=== PATIENT | female | born 1990 | race Caucasian/White ===

== ENCOUNTER 2017-08-27 01:22 | Inpatient (IN) | payer BC ==
[~2017-08-27] VITALS: Ht 167.6 cm; Wt 85.0 kg
[2017-08-27] VITALS (17 sets, daily range): BP systolic 106–117; BP diastolic 70–75; PULSE 60–75; TEMP 36.6–36.9; O2SAT 98–100; Ht 167.6 cm; Wt 85.0 kg
[2017-08-27] MEDS ORDERED: LACTATED RINGER'S 1000ML 1,000 ML IV SCH ×2 (01:54→12:00)
[2017-08-27] MEDS ORDERED: CEFAZOLIN IV 2,000 MG in SYRINGE 0 ML IV SCH (02:00)
[2017-08-27] MEDS ORDERED: CITRIC ACID/SODIUM CITRATE 15 ML UDC PO ONE (02:00)
[2017-08-27] MEDS ORDERED: PRENTAB26 PO (02:12)
[2017-08-27] MEDS ORDERED: BUDE1SUS8 (02:13)
[2017-08-27] MEDS ORDERED: CHOL1000 PO (02:14)
[2017-08-27] MEDS ORDERED: PROB1TAB16 (02:14)
[2017-08-27] MEDS ORDERED: CLR10 PO (02:14)
[2017-08-27 02:32] LABS: BASO % 0.1 %; BASO ABS # 0.01 K/uL (0-0.2); EOS % 0.9 %; EOS ABS # 0.08 K/uL (0-0.5); HEMATOCRIT 37.2 % (37-47); HEMOGLOBIN 13.1 g/dL (12.0-16.0); IG# 0.09 K/uL (0.00-0.02); LYMPH ABS # 1.67 K/uL (1.2-3.4); MEAN CELL VOLUME 90.1 fL (80-100); MEAN CORPUSCULAR HEMOGLOBIN 31.7 pg (25-34); MEAN CORPUSCULAR HGB CONC 35.2 g/dl (32-36); MEAN PLATELET VOLUME 9.4 fL (7.4-10.4); MONO % 6.8 %; NEUT % 72.2 %; NEUT ABS # 6.32 K/uL (1.4-6.5); PLATELET COUNT 195 K/uL (130-400); RED CELL DISTRIBUTION WIDTH CV 14.4 % (11.5-14.5); RED CELL DISTRIBUTION WIDTH SD 47.3 fL (36.4-46.3); WHITE BLOOD COUNT 8.77 K/uL (4.8-10.8)
[2017-08-27] MEDS ORDERED: FENTANYL CITRATE INJ 50 MCG/1 ML 2 ML VIAL ONE (02:34)
[2017-08-27] MEDS ORDERED: MoRPHine SULFATE PF 1 MG/ML 10 ML AMP/VIAL ONE (02:35)
[2017-08-27] MEDS ORDERED: OXYTOCIN INJ 10 UNITS/ML VIAL ONE ×2 (02:35→03:43)
[2017-08-27] MEDS ORDERED: PHENYLEPHRINE 100MCG/ML 5ML SYR ONE (03:05)
--- NOTE | 2017-08-27 03:22 | HISTORY & PHYSICAL EXAMINATION ---
DATE OF ADMISSION: 08/27/2017 CHIEF COMPLAINT: Spontaneous rupture of membranes and breech presentation. HISTORY OF PRESENT ILLNESS: The patient is a 27-year-old 1, para 0 at 39 weeks and 5 days gestation who was admitted to labor and delivery on the morning of 08/27/2017 with rupture of membranes that occurred at 1:00 a.m. She was scheduled for a primary on 08/29/2017 for a breech presentation. She was seen in the office last week and was found to be in the breech presentation. On arrival to labor and delivery, she was grossly ruptured. She was found to be 1 cm, 50% effaced, and -2 station. A bedside ultrasound was performed noting that the baby was still in the breech presentation. heart tones were category 1. Contractions were irregular. We discussed the risks, benefits, and alternatives of a primary section and informed consent was obtained. PAST MEDICAL HISTORY: Significant for vitamin D deficiency and allergies. PAST SURGICAL HISTORY: She had her wisdom teeth removed in 2006. SOCIAL HISTORY: The patient denies tobacco, alcohol, or drug use. MEDICATIONS: Rhinocort nasal spray daily, vitamin D 1000 units daily, Claritin 10 mg daily, vitamins, probiotic daily. ALLERGIES: The patient has no known drug allergies. LABS: Blood type is A negative, group B strep negative, rubella immune, hepatitis B surface antigen negative, RPR nonreactive and HIV negative. PHYSICAL EXAMINATION: VITAL SIGNS: Blood pressure 114/77, heart rate of 80, respiration rate of 20, temperature 97.7. GENERAL: The patient is awake, alert, and oriented x3. She is in no acute distress. HEART: Regular rate and rhythm. LUNGS: Clear to auscultation bilaterally. ABDOMEN: Gravid uterus, appropriate for gestational age. Bowel sounds present x4. EXTREMITIES: No clubbing, cyanosis, or calf tenderness. VAGINAL EXAM: She is 1 cm, 50% effaced, -2 station and grossly ruptured with clear amniotic fluid noted. heart tones are category 1. ASSESSMENT AND PLAN: A 27-year-old female 1, para 0 at 39 weeks and 5 days gestation, will be admitted to labor and delivery for spontaneous rupture of membranes and breech presentation. Will proceed with a primary section. Risks, benefits, and alternatives were discussed and informed consent was obtained. [facility]ITALRehana
[2017-08-27] MEDS ORDERED: NALOXONE HCL INJ 1 MG in SODIUM CHLORIDE 0.9% 1000ML 1,000 ML IV PRN (03:32)
[2017-08-27] MEDS ORDERED: LACTATED RINGER'S 1000ML 500 ML IV PRN (03:32)
[2017-08-27] MEDS ORDERED: NALOXONE HCL INJ 0.08 MG in SYRINGE 1.8 ML IV PRN (03:32)
[2017-08-27] MEDS ORDERED: SODIUM CHLORIDE 0.9% 1000ML 1,000 ML IV PRN (03:32)
[2017-08-27] MEDS ORDERED: ONDANSETRON INJ 2 MG/ML 2 ML VIAL IV PRN ×2 (03:45→21:00)
[2017-08-27] MEDS ORDERED: NALOXONE HCL 0.4 MG/1 ML VIAL/CARP IV PRN (03:45)
[2017-08-27] MEDS ORDERED: MEPERIDINE HCL 25 MG/ML CARP IV PRN (03:45)
[2017-08-27] MEDS ORDERED: DiphenhydrAMINE HCL 50 MG/ML VIAL IV PRN (03:45)
[2017-08-27] MEDS ORDERED: NALBUPHINE HCL INJ 10 MG/ML AMP IV PRN (03:45)
[2017-08-27] MEDS ORDERED: NO NARCOTICS OR SEDATIVES SCH (03:45)
[2017-08-27] MEDS ORDERED: EpHEDrine SULFATE INJ 50 MG/ML AMP IV PRN (03:45)
[2017-08-27] MEDS ORDERED: MoRPHine SULFATE 4 MG/ML 1 ML CARP\\VIAL IV PRN (03:45)
[2017-08-27] MEDS ORDERED: MoRPHine SULFATE PF 1 MG/ML 10 ML AMP/VIAL EPI PRN (03:45)
--- NOTE | 2017-08-27 04:00 | [facility] Post Operative Brief Note ---
Immediate Operative Summary Operative Date August 27, 2017. Pre-Operative Diagnosis 39.5 WKS GESTATION, BREECH PRESENTATION WITH RUPTURE OF MEMBRANES Post-Operative Diagnosis SAME ABOVE Procedure(s) Performed CAESAREAN SECTION DEL VIABLE FEMALE AT [address] ONEIL Sales Lead Surgeon(s) Kierra Cullen RN Estimated Blood Loss 600ML Findings Consistent with Post-Op Diagnosis Fluids (cc crystalloids) 2200 Specimens PLACENTA-HOLD Drains Michaud To [place] Anesthesia Type Spinal Complication(s) none Disposition Accompanied Pt To Recover: no Disposition: L&D
[2017-08-27] MEDS ORDERED: DIPHTHERIA/TETANUS/PERTUSSIS 0.5 ML SYR/VIAL IM. ONE (04:15)
[2017-08-27] MEDS ORDERED: SENNA 8.6 MG TAB PO PRN (04:15)
[2017-08-27] MEDS ORDERED: LANOLIN OINT EXT PRN (04:15)
[2017-08-27] MEDS ORDERED: BENZOCAINE 20% AER SPR 82.5 GM CAN EXT PRN (04:15)
[2017-08-27] MEDS ORDERED: HYDROCORTISONE ACETATE 25 MG SUPP PR PRN (04:15)
[2017-08-27] MEDS ORDERED: MAGNESIUM HYDROXIDE SUSP 30 ML UDC PO PRN (04:15)
[2017-08-27] MEDS ORDERED: SUPERCREAM 0.870 % 15GM JAR EXT PRN (04:15)
--- NOTE | 2017-08-27 04:34 | Anesthesiology Progress Note ---
Anesthesia Post Op Note Date & Time August 27, 2017 at 04:33 Notes Mental Status: alert / awake / arousable, participated in evaluation Pt Amnestic to Procedure: Yes Nausea / Vomiting: adequately controlled Pain: adequately controlled Airway Patency, RR, SpO2: stable & adequate BP & HR: stable & adequate Hydration State: stable & adequate Neuraxial Anesthesia: was administered, sensory block is resolving Anesthetic Complications: no major complications apparent
--- NOTE | 2017-08-27 05:11 | OPERATIVE REPORT ---
DATE OF OPERATION: 08/27/2017 PREOPERATIVE DIAGNOSES: 1. Intrauterine at 39 weeks and 5 days gestation. 2. Breech presentation. 3. Spontaneous rupture of membranes. POSTOPERATIVE DIAGNOSES: 1. Intrauterine at 39 weeks and 5 days gestation. 2. Breech presentation. 3. Spontaneous rupture of membranes. OPERATIVE PROCEDURE: Primary low transverse section. SURGEON: Elliott Majano DO SENIOR NETWORK ENGINEER: Kierra Cullen RN. ANESTHESIA: Spinal. ESTIMATED BLOOD LOSS: 600 mL. INTRAVENOUS FLUIDS: 2200 mL crystalloids. URINE OUTPUT: 250 mL clear yellow urine. SPECIMENS: Placenta and cord blood. DRAINS: Michaud to gravity. COMPLICATIONS: None. DISPOSITION: To labor and delivery. OPERATIVE FINDINGS: Patient delivered a viable female infant in the dante breech presentation at 3:18 a.m. on 08/27/2017 via primary low transverse section. Nuchal cord x1 was reduced at delivery. Baby weighed 7 pounds 13 ounces with Apgars of 8 at 1 minute and 9 at 5 minutes. Please see fiction writer's notes for further baby assessment. Cord blood was obtained and intact placenta with 3-vessel cord was delivered at 3:19 a.m. Grossly normal uterus and bilateral tubes and ovaries were noted. Both patient and baby tolerated the surgery well and were in recovery with stable vital signs. OPERATIVE PROCEDURE IN DETAIL: The patient was taken to the operating room where spinal anesthesia was administered. The patient was then immediately placed in a dorsal supine position with a left lateral tilt and was prepped and draped in a manner appropriate for the procedure. Once the anesthesia was found to be adequate, a Pfannenstiel skin incision was made 2 fingerbreadths above the pubic symphysis and was carried down through to a layer of the rectus fascia. Fascia was nicked in the midline and extended bilaterally with curved Delgado scissors. The superior aspect of the fascial incision was grasped with Piter clamps, elevated, and the rectus muscles were dissected off with the use of the curved Delgado scissors and electrocautery. Likewise, the inferior aspect of the fascial incision was grasped with Piter clamps, elevated, and rectus muscles were dissected off with the use of curved Delgado scissors. Rectus muscles were in midline. The peritoneum was grasped with hemostats x2 and entered with Metzenbaum scissors. Peritoneal incision was then extended cephalocaudally with gentle traction. An Noah retractor was then placed within the abdomen. The vesicouterine peritoneum was identified and a bladder flap was created with the Metzenbaum scissors and digital traction. The bladder flap was incorporated beneath the Rowe blade. A transverse incision was then made on the uterus and extended bilaterally with digital traction. The baby was found to be in the dante breech presentation and was delivered with breech maneuvers without complications. Nuchal cord x1 was reduced at delivery. Baby was bulb suctioned at delivery. Cord was clamped x2 and cut. Baby was immediately handed to awaiting fiction writer for further evaluation and management. Please see their notes for further baby assessment. Cord blood was then obtained and intact placenta with 3-vessel cord was delivered manually through the incision. The uterus was then exteriorized and wrapped in a moist laparotomy sponge. The uterus was then cleared of any trailing membranes and debris with a laparotomy sponge. The uterine incision was then grasped with ring forceps at 4 quadrants and was then closed with 0 Vicryl suture in a continuous locking fashion. A second layer of 0 Vicryl suture was used in imbricating fashion to ensure hemostasis. The posterior cul-de-sac was then irrigated with warm saline solution. The uterus was then placed back within its normal anatomic position within the abdomen. The anterior cul-de-sac was then irrigated with warm saline solution. The uterine incision was noted to be hemostatic once again. The bladder flap was reapproximated to the lower uterine segment with 3-0 Vicryl suture in continuous running fashion. Excellent hemostasis was noted. All instruments were then removed from the abdomen. The Noah retractor was also removed from the abdomen. The peritoneum was then grasped with Yuridia clamps at 4 quadrants and was then closed with 2-0 Vicryl suture in continuous running fashion. Rectus muscles were reapproximated with 0 Vicryl suture in a [id number] interrupted fashion. Rectus fascia was then closed with 0 Vicryl suture in continuous running fashion. Subcutaneous tissue was reapproximated with 2-0 Vicryl suture in continuous running fashion. Skin was then closed with 4-0 Monocryl in a subcuticular fashion. Excellent hemostasis was noted through all tissue layers. All sponge, instrument, and needle counts found to be correct x2. The patient tolerated the procedure well and was sent to recovery with stable vital signs. I attest to the content of the Intraoperative Record and any orders documented therein. Any exception s are noted below.
[2017-08-27] MEDS: OXYTOCIN INJ 30 UNITS in LACTATED RINGER'S 1000ML 1,000 ML IV SCH ×2 (05:48→13:52)
[2017-08-27] MEDS: KETOROLAC TROMETHAMINE 30 MG/ML VIAL IV. PRN ×2 (07:55→16:39)
[2017-08-27] MEDS ORDERED: LORATADINE 10 MG TAB PO SCH (08:00)
[2017-08-27] MEDS: SIMETHICONE 80 MG CHEW PO SCH ×4 (08:25→19:55)
[2017-08-27] MEDS: DOCUSATE SODIUM 100 MG CAP PO SCH ×2 (08:26→19:55)
[2017-08-27] MEDS: PRENATAL VITAMIN TAB PO SCH (08:26)
[2017-08-27] MEDS: FERROUS SULFATE 325 MG TAB PO SCH (08:27)
[2017-08-27] MEDS ORDERED: NURSING VERBAL MED ORDER ONE (08:30)
[2017-08-27] MEDS: LORATADINE 10 MG TAB PO SCH (19:56)
[2017-08-27] MEDS ORDERED: DC INTRASPINAL MORPHINE ONE (21:00)
[2017-08-27] MEDS ORDERED: OXYCODONE/ACETAMINOPHEN 5-325 TAB PO PRN (21:00)
[2017-08-27] MEDS ORDERED: KETOROLAC TROMETHAMINE 30 MG/ML VIAL IV. PRN (21:00)
[2017-08-27] MEDS ORDERED: ZOLPIDEM TARTRATE 5 MG TAB PO PRN (21:00)
[2017-08-27] MEDS ORDERED: MEPERIDINE HCL 50 MG/ML CARP IV PRN ×2 (21:00)
[2017-08-28] VITALS: BP 94/53; PULSE 63; TEMP 36.8; O2SAT 95
[2017-08-28 06:03] LABS: BASO % 0.1 %; BASO ABS # 0.01 K/uL (0-0.2); EOS % 2.3 %; EOS ABS # 0.18 K/uL (0-0.5); HEMATOCRIT 34.3 % (37-47); HEMOGLOBIN 11.9 g/dL (12.0-16.0); IG# 0.06 K/uL (0.00-0.02); LYMPH % 16.3 %; MEAN CELL VOLUME 91.2 fL (80-100); MEAN CORPUSCULAR HEMOGLOBIN 31.6 pg (25-34); MEAN CORPUSCULAR HGB CONC 34.7 g/dl (32-36); MEAN PLATELET VOLUME 8.7 fL (7.4-10.4); MONO % 7.5 %; NEUT ABS # 5.83 K/uL (1.4-6.5); PLATELET COUNT 163 K/uL (130-400); RED CELL DISTRIBUTION WIDTH CV 14.7 % (11.5-14.5); RED CELL DISTRIBUTION WIDTH SD 49.4 fL (36.4-46.3); WHITE BLOOD COUNT 7.98 K/uL (4.8-10.8)
[2017-08-28] MEDS: OXYCODONE/ACETAMINOPHEN 5-325 TAB PO PRN ×4 (06:24→19:37)
[2017-08-28] MEDS: IBUPROFEN 600 MG TAB PO PRN ×4 (06:24→19:36)
[2017-08-28 07:00] VITALS: BP 107/70; PULSE 61; TEMP 36.8
[2017-08-28] MEDS: PRENATAL VITAMIN TAB PO SCH (08:31)
[2017-08-28] MEDS: DOCUSATE SODIUM 100 MG CAP PO SCH ×2 (08:31→19:36)
[2017-08-28] MEDS: SIMETHICONE 80 MG CHEW PO SCH ×4 (08:32→19:36)
[2017-08-28] MEDS: FERROUS SULFATE 325 MG TAB PO SCH (08:32)
--- NOTE | 2017-08-28 09:24 | Surgery Progress Note ---
Surgery Progress Note Date of Service August 28, 2017. Subjective Post OP Day: 1 + feeling well, + ambulating, + flatus, + pain controlled, + diet Objective Vital Signs: Date Time Temp Pulse Resp B/P (MAP) Pulse Ox O2 Delivery O2 Flow Rate FiO2 08/28/17 07:30 Room Air 08/28/17 07:00 36.8 61 16 107/70 (82) 08/28/17 00:00 36.8 63 18 94/53 (67) 95 Room Air 08/28/17 00:00 95 Room Air 08/27/17 20:45 18 99 08/27/17 19:45 20 98 08/27/17 19:45 36.7 65 20 106/70 (82) 98 Room Air 08/27/17 18:45 18 98 08/27/17 17:00 18 99 08/27/17 16:00 20 100 08/27/17 15:30 100 Room Air 08/27/17 15:30 36.6 75 20 106/70 (82) 100 Room Air 08/27/17 15:10 16 100 08/27/17 15:00 20 100 08/27/17 14:10 16 100 08/27/17 13:10 20 100 08/27/17 12:30 36.9 60 20 110/71 (84) 08/27/17 12:30 100 08/27/17 12:10 16 100 08/27/17 11:10 16 100 08/27/17 10:10 16 100 General Appearance: no apparent distress Abdomen: non tender, non distended, soft Incision(s): clean, dry, intact Extremities: normal range of motion, non-tender, normal inspection, no pedal edema Laboratory Results: Results Past 24 Hours Test 08/28/17 05:54 Range/Units White Blood Count 7.98 4.8-10.8 K/uL Red Blood Count 3.76 4.2-5.4 M/uL Hemoglobin 11.9 12.0-16.0 g/dL Hematocrit 34.3 37-47 % Mean Corpuscular Volume 91.2 80-100 fL Mean Corpuscular Hemoglobin 31.6 25-34 pg Mean Corpuscular Hemoglobin Concent 34.7 32-36 g/dl Platelet Count 163 130-400 K/uL Mean Platelet Volume 8.7 7.4-10.4 fL Neutrophils (%) (Auto) 73.0 % Lymphocytes (%) (Auto) 16.3 % Monocytes (%) (Auto) 7.5 % Eosinophils (%) (Auto) 2.3 % Basophils (%) (Auto) 0.1 % Neutrophils # (Auto) 5.83 1.4-6.5 K/uL Lymphocytes # (Auto) 1.30 1.2-3.4 K/uL Monocytes # (Auto) 0.60 0.11-0.59 K/uL Eosinophils # (Auto) 0.18 0-0.5 K/uL Basophils # (Auto) 0.01 0-0.2 K/uL RDW Standard Deviation 49.4 36.4-46.3 fL RDW Coefficient of Variation 14.7 11.5-14.5 % Immature Granulocyte % (Auto) 0.8 % Immature Granulocyte # (Auto) 0.06 0.00-0.02 K/uL Assessment & Plan regular diet POD#1 advance diet and care
[2017-08-28 16:10] VITALS: BP 100/66; PULSE 62; TEMP 36.8; O2SAT 100
[2017-08-28] MEDS ORDERED: BISACODYL 5 MG TABEC PO ONE (22:00)
[2017-08-28] MEDS: LORATADINE 10 MG TAB PO SCH (22:00)
[2017-08-29] MEDS: IBUPROFEN 600 MG TAB PO PRN ×6 (00:18→21:53)
[2017-08-29] MEDS: OXYCODONE/ACETAMINOPHEN 5-325 TAB PO PRN ×6 (00:19→21:53)
[2017-08-29 00:30] VITALS: BP 99/69; PULSE 61; TEMP 36.4; O2SAT 98
[2017-08-29] MEDS ORDERED: BISACODYL 10 MG SUPP PR PRN (04:15)
[2017-08-29 06:22] LABS: HEMATOCRIT 32.6 % (37-47)
[2017-08-29 07:26] VITALS: BP 104/69; PULSE 77; TEMP 36.9
--- NOTE | 2017-08-29 08:13 | OB/GYN Progress Note ---
TIP FINISHER Progress Note Date of Service August 29, 2017. Subjective conversation w/ patient, physical exam Ambulation: ambulating normally Voiding: no voiding problems Passing Gas: Yes Diet Tolerance: Regular Diet Lochia: Small Feeding Type: Breast Feeding Pain: 04/26 Notes: Doing well, no concerns. Pain well controlled. Tolerating regular diet. Ambulating without difficulty. Review of Systems Constitutional: No fever, No chills, No sweats, No weight loss, No weakness, No fatigue, No problem reported Respiratory: No cough, No sputum, No wheezing, No shortness of breath, No dyspnea on exertion, No dyspnea at rest, No hemoptysis, No problem reported Cardiac: No chest pain, No orthopnea, No PND, No edema, No claudication, No palpitations, No problem reported Abdomen: No pain, No nausea, No vomiting, No diarrhea, No constipation, No GI bleeding, No problem reported Female : No see HPI, No dysuria, No urinary frequency, No hematuria, No incontinence, No abnormal vaginal bleeding, No vaginal discharge, No problem reported Objective Vital Signs Date Time Temp Pulse Resp B/P (MAP) Pulse Ox O2 Delivery O2 Flow Rate FiO2 08/29/17 07:26 36.9 77 20 104/69 (81) 08/29/17 00:30 36.4 61 16 99/69 (79) 98 Room Air 08/29/17 00:30 98 Room Air 08/28/17 16:10 Room Air 08/28/17 16:10 36.8 62 16 100/66 (77) 100 Room Air Physical Exam General Appearance: WELL-APPEARING, WD/WN Respiratory/Chest: chest non-tender, lungs clear Cardiovascular: regular rate, rhythm Abdomen: normal bowel sounds, soft Fundus: Firm Incision Description: Clean, Dry & Intact Extremities: normal range of motion, non-tender, no calf tenderness Laboratory Results Last 24 Hours Test 08/29/17 06:11 Hemoglobin 11.0 g/dL Hematocrit 32.6 % Assessment and Plan Post-Op Day Number: 2 Continue Routine Care: -Continue routine postop care -Anticipate D/C home tomorrow
[2017-08-29] MEDS: FERROUS SULFATE 325 MG TAB PO SCH (08:40)
[2017-08-29] MEDS: DOCUSATE SODIUM 100 MG CAP PO SCH ×2 (08:40→20:05)
[2017-08-29] MEDS: SIMETHICONE 80 MG CHEW PO SCH ×4 (08:40→20:05)
[2017-08-29] MEDS: PRENATAL VITAMIN TAB PO SCH (08:40)
[2017-08-29 17:00] VITALS: BP 108/67; PULSE 63; TEMP 36.6
[2017-08-29 19:55] VITALS: BP 125/76; PULSE 61; TEMP 36.6; O2SAT 99
[2017-08-29] MEDS: LORATADINE 10 MG TAB PO SCH (22:00)
[2017-08-29 23:25] VITALS: BP 107/68; PULSE 59; TEMP 36.9; O2SAT 99
[2017-08-30] MEDS: OXYCODONE/ACETAMINOPHEN 5-325 TAB PO PRN ×3 (04:16→12:32)
[2017-08-30] MEDS: IBUPROFEN 600 MG TAB PO PRN ×3 (04:16→12:31)
[2017-08-30 07:14] VITALS: BP 108/75; PULSE 65; TEMP 36.8
[2017-08-30] MEDS: PRENATAL VITAMIN TAB PO SCH (07:21)
[2017-08-30] MEDS: SIMETHICONE 80 MG CHEW PO SCH (07:21)
[2017-08-30] MEDS: FERROUS SULFATE 325 MG TAB PO SCH (07:21)
[2017-08-30] MEDS: DOCUSATE SODIUM 100 MG CAP PO SCH (07:21)
[2017-08-30] MEDS ORDERED: MTR600X PO (09:06)
[2017-08-30] MEDS ORDERED: OXYC-57 PO (09:06)
--- NOTE | 2017-08-30 09:08 | Discharge Instructions ---
Discharge Instructions Date of Service August 30, 2017. Admission Reason for Admission: Breech Presentation, Srom, Term Discharge Discharge Diagnosis / Problem: term delivered by Discharge Goals Goal(s): Routine recovery after Activity Recommendations Activity Limitations: as noted below Lifting Limitations: no more than 10 pounds Exercise/Sports Limitations: gradually increase as tolerated May Resume Sexual Activity: after follow-up appointment Shower/Bathe: no limitations Driving or Machine Use: resume 3 days after discharge . Current Hospital Diet Patient's current hospital diet: Regular OB Diet Discharge Diet Recommended Diet: Regular OB Diet Fluid Restriction: None Procedures Procedures Performed: CAESAREAN SECTION DEL VIABLE FEMALE AT 0318 Pending Studies Studies pending at discharge: no Medical Emergencies . Who to Call and When: Medical Emergencies: If at any time you feel your situation is an emergency, please call 911 immediately. . Non-Emergent Contact Non-Emergency issues call your: Primary Care Provider . . "Provider Documentation" section prepared by Alex De La Vega. .
--- NOTE | 2017-08-30 09:30 | Surgery Progress Note ---
Surgery Progress Note Date of Service August 30, 2017. Subjective Post OP Day: 3 + feeling well, + ambulating, + flatus, + pain controlled, + diet Objective Vital Signs: Date Time Temp Pulse Resp B/P (MAP) Pulse Ox O2 Delivery O2 Flow Rate FiO2 08/30/17 07:25 Room Air 08/30/17 07:14 36.8 65 18 108/75 (86) 08/29/17 23:25 36.9 59 18 107/68 (81) 99 Room Air 08/29/17 23:25 99 Room Air 08/29/17 19:55 99 Room Air 08/29/17 19:55 36.6 61 18 125/76 (92) 99 Nasal Cannula 08/29/17 17:00 36.6 63 20 108/67 (81) Room Air 08/29/17 17:00 Room Air General Appearance: no apparent distress Abdomen: non tender, non distended, soft Incision(s): clean, dry, intact Extremities: non-tender, normal inspection, no pedal edema, no calf tenderness Assessment & Plan POD#3 discharged POD#3 discharged
[2017-08-30 13:14] VITALS: BP_DIAS 75; PULSE 65; TEMP 36.8
== END 2017-08-30 11:25 | disposition home or self-care (01) | DRG 766 ==
LOC: C.OPB 01:22 → C.LD 01:24 → C.OPB 01:55 → C.OBG 08:43
PROVIDERS: ADMIT Obstetrics & Gynecology; ATTEND Obstetrics & Gynecology
PROC: 10D00Z1 Extraction of Products of Conception, Low, Open Approach (ICD-10-PCS; principal; 2017-08-27 02:12)
DX: O32.1XX0 Maternal care for breech presentation, not applicable or unspecified (principal); O69.81X0 Labor and delivery complicated by cord around neck, without compression, not applicable or unspecified; Z3A.39 39 weeks gestation of pregnancy; Z37.0 Single live birth